=== PATIENT | male | born 1990 ===

== ENCOUNTER 2021-11-07 22:26 | Emergency (ER) | payer SELFPAY ==
[2021-11-07 22:57] VITALS: BP 131/94
--- NOTE | 2021-11-07 23:18 | XRay Report ---
CHEST 2 VIEWS INDICATION / CLINICAL INFORMATION: CHEST PAIN. COMPARISON: None available. FINDINGS: SUPPORT DEVICES: None. HEART / MEDIASTINUM: No significant abnormality. LUNGS / PLEURA: No significant pulmonary or pleural abnormality. No pneumothorax. ADDITIONAL FINDINGS: No significant additional findings. IMPRESSION: 1. No acute findings. Signer Name: Marvin Lundberg MD Signed: 11/07/2021 11:13 PM Workstation Name: [id number]
--- NOTE | 2021-11-08 10:42 | Electrocardiograph Report ---
[facility] Test Date: 2021-11-07 Test Time: 22:51:10 Pat Name: GREGORY SINGER Department: Room: Gender: M Tax Accounting Manager: HANNAH : 1990 Requested By: MARIA ELENA GARZA Order Number: [id number] Reading MD: Farzana Castellano Measurements Intervals [place] Rate: 71 P: 26 CA: 147 QRS: 72 QRSD: 99 T: 20 QT: 366 QTc: 398 Interpretive Statements Sinus rhythm No previous ECG available for comparison Electronically Signed On 11-08-2021 10:41:58 EDT by Farzana Castellano
== END 2021-11-08 14:40 | disposition left against medical advice (07) ==
LOC: ED 22:26
DX: R07.89 Other chest pain (principal); Z53.21 Procedure and treatment not carried out due to patient leaving prior to being seen by health care provider
CPT/HCPCS: 71046; 93005